=== PATIENT | male | born 1945 | race African-American/Black ===

== ENCOUNTER 2020-10-24 14:52 | Emergency (ER) | payer OTHER ==
[~2020-10-24] VITALS: Ht 200.7 cm; Wt 115.1 kg
[2020-10-24 14:55] VITALS: BP 160/78
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
[2020-10-24] MEDS ORDERED: IBUPROFEN 600 MG TABLET. PO ONE (15:15)
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
== END 2020-10-24 16:02 | disposition home or self-care (01) ==
LOC: ER 14:52
DX: S09.90XA Unspecified injury of head, initial encounter (principal); M54.2 Cervicalgia; V89.2XXA Person injured in unspecified motor-vehicle accident, traffic, initial encounter; Y93.I9 Activity, other involving external motion; Y92.89 Other specified places as the place of occurrence of the external cause; Y99.8 Other external cause status
CPT/HCPCS: 70450; 72125; 99285